=== PATIENT | female | born 1980 | race African-American/Black ===

== ENCOUNTER 2019-05-20 13:54 | Emergency (ER) | payer MEDICAID ==
[~2019-05-20] VITALS: Ht 160 cm; Wt 59.0 kg
[2019-05-20 14:06] VITALS: BP 141/72
[2019-05-20] MEDS ORDERED: IPRATROPIUM BROMIDE (0.02%) 0.5MG/2.5ML NEB HHN STA (14:19)
[2019-05-20] MEDS ORDERED: ALBUTEROL (0.083%) 2.5MG/3ML NEB HHN STA (14:19)
== END 2019-05-20 16:15 | disposition home or self-care (01) ==
LOC: ER 14:14
DX: J20.9 Acute bronchitis, unspecified (principal); J06.9 Acute upper respiratory infection, unspecified; J45.901 Unspecified asthma with (acute) exacerbation
CPT/HCPCS: 71045; 94640; 99283; J7610; Z7610